=== PATIENT | female | born 1985 | race Caucasian/White ===

== ENCOUNTER 2020-02-08 00:46 | Emergency (ER) | payer MEDICAID ==
[~2020-02-08] VITALS: Ht 162.6 cm; Wt 60.0 kg
--- NOTE | 2020-02-08 00:59 | NUR ---
BIB EMS FOR CP THAT STARTED 2 WEEKS AGO. PT DECIDED TO COME IN TONIGHT BECAUSE IT HASN'T GOTTEN BETTER. FATHER OF ME AT AGE 56. PT RECEIVED 324 ASA AND 150ML NS IN ROUTE. PT CONNECTED TO CARDIAC, BP AND O2 MONITORS. PT HAS CALL LIGHT IN REACH. BED RAILS UP. EKG DONE.
[2020-02-08 01:13] LABS: BASOPHILS % (AUTO) 1 % (0-1); EOSINOPHILS % (AUTO) 2 % (1-7); LYMPHOCYTES % (AUTO) 38 % (22-44); MEAN CORPUSCULAR HEMOGLOBIN 32.5 pg (27.0-34.8); MEAN CORPUSCULAR HGB CONC 33.4 g/dL (32.4-35.8); MONOCYTES % (AUTO) 10 % (2-9); NEUTROPHILS % (AUTO) 50 % (42-75); PLATELET COUNT 182 x10^3/uL (130-400); RED BLOOD COUNT 4.06 x10^6/uL (3.82-5.3); RED CELL DISTRIBUTION WIDTH 12.6 % (9.6-15.2)
[2020-02-08 01:20] LABS: ALBUMIN 3.4 g/dL (3.4-5.0); ANION GAP 5 mmol/L (5-15); CALCIUM 8.3 mg/dL (8.5-10.1); CHLORIDE 109 mmol/L (98-107)
[2020-02-08 01:37] LABS: MD SCAN
--- NOTE | 2020-02-08 01:37 | NUR ---
INQUIRED WITH ERP ABOUT TROPONIN LAB, NO NEW ORDERS RECEIVED.
[2020-02-08] MEDS ORDERED: ACETAMINOPHEN 325 MG TABLET PO ONE (02:00)
[2020-02-08] MEDS ORDERED: MAALOX/HYOSCYAMINE/LIDOCAINE 45 ML BTL PO ONE (02:00)
[2020-02-08] MEDS ORDERED: ACETAMINOPHEN 325 MG TABLET ONE (02:13)
[2020-02-08] MEDS ORDERED: MAALOX/HYOSCYAMINE/LIDOCAINE 45 ML BTL ONE (02:13)
--- NOTE | 2020-02-08 02:19 | NUR ---
PT AWOKE FROM SLEEP TO BE MEDICATED. PT UPDATED ON POC. ALL NEEDS MET AT THIS TIME.
--- NOTE | 2020-02-08 02:20 | NUR ---
XRAY CALLED TO INQUIRE ABOUT CXR READ.
[2020-02-08 02:41] VITALS: BP 104/64
--- NOTE | 2020-02-08 02:41 | NUR ---
PT STATES SHE'S DOING "GOOD" WHEN ASKED ABOUT PAIN.
== END 2020-02-08 03:07 | disposition home or self-care (01) ==
LOC: ED 02:49
DX: F41.1 Generalized anxiety disorder (principal); R07.89 Other chest pain; R00.0 Tachycardia, unspecified; F17.210 Nicotine dependence, cigarettes, uncomplicated; Z72.9 Problem related to lifestyle, unspecified
CPT/HCPCS: 36415; 71046; 80048; 82040; 85025; 93005; 99285; 99406